=== PATIENT | female | born 1960 | race Caucasian/White ===

== ENCOUNTER → 2020-02-24 | Outpatient (CLI) | payer OTHER ==
[~2020-02-24] MED LIST: ALLOPURINOL 10100 M3 PO; AMLODIPINE BESYL5 MG PO; ASPIRIN EC325 M1 PO; ASPIRIN325 PO; ATORVASTATIN CA40 MG PO; BYSTOLIC10 MG PO; CADUET PO; DEXILANT30 MG PO; EDARBI40 MG PO; EFFIENT10 MG PO; FAMOTIDINE 40 M40 M1 PO; LASIX 40 MG TAB40 M1 PO; LEXAPRO 10 MG T10 M2 PO; LEXAPRO 10 MG T10 MG PO; LIPITOR 20 MG T20 M1 PO; MINIPRIN81 MG PO; OMEPRAZOLE 20 M20 M1 PO; PLAVIX 75 MG TA75 MG PO; POTASSIUM20 PO; XANAX 0.5 MG0.5 M1 PO
== END ==
LOC: SJCVCIMAG 09:43
DX: I70.1 Atherosclerosis of renal artery (principal)

== ENCOUNTER 2020-02-26 07:30 | Inpatient (IN) | payer OTHER ==
[~2020-02-26] VITALS: Ht 154.9 cm; Wt 85.5 kg
[2020-02-26] VITALS (11 sets, daily range): BP systolic 149–175; BP diastolic 59–73
[~2020-02-26 07:30] MED LIST changes: -ALLOPURINOL 10100 M3 PO; -EDARBI40 MG PO; -POTASSIUM20 PO
[2020-02-26] MEDS ORDERED: ALLOPURINOL 10100 M3 PO (08:26)
[2020-02-26] MEDS ORDERED: EDARBI40 MG PO (08:28)
[2020-02-26] MEDS ORDERED: PLAVIX 75 MG TA75 MG PO (08:29)
[2020-02-26] MEDS ORDERED: LEXAPRO 10 MG T10 MG PO (08:31)
[2020-02-27 00:11] VITALS: BP 134/53
[2020-02-27 00:40] VITALS: BP 134/53
--- NOTE | 2020-02-27 03:29 | NUR ---
ASSESSMENT DOCUMENTED.PT BEEN RESTING IN NO ACUTE DISTRESS.A/OX4.VSS.POST CARDIAC ANIKA W/INTERVENTIONS.RIGHT GROIN INTACT,W/O HEMATOMA.NSR ON MONITOR.NO C/O CHEST PAIN.PT DENIES PAIN OR ANY DISTRESS AT THIS TIME.POC IS TO GO HOME THIS AM.
[2020-02-27 04:16] VITALS: BP 134/53
[2020-02-27 04:54] VITALS: BP 146/64
[2020-02-27 05:42] LABS: HEMATOCRIT 32.7 % (37.0-47.0); HEMOGLOBIN 10.6 gm/dL (12.0-15.0); MCH 25.4 pg (26.0-34.0); MCHC 32.5 g/dL (28.0-37.0); MCV 78.2 fL (80.0-100.0); RBC 4.18 mil/uL (4.20-5.00); RDW 17.7 % (10.5-14.5); WBC 9.1 thou/uL (4.0-11.0)
[2020-02-27 06:04] LABS: ALBUMIN 3.1 g/dL (3.4-5.0); ANION GAP 10 mmol/L (7-16); BUN 14 mg/dL (7-18); CALCIUM 8.2 mg/dL (8.5-10.1); CHLORIDE 102 mmol/L (98-107); CO2 28 mmol/L (21-32); CREATININE 0.9 mg/dL (0.6-1.0); GLUCOSE 88 mg/dL (74-106); SGOT 20 U/L (15-37); SGPT 34 U/L (30-65); SODIUM 140 mmol/L (136-145); TOTAL BILIRUBIN 0.5 mg/dL (<0.1-1.0); TOTAL PROTEIN 6.7 g/dL (6.4-8.2); TROPONIN-I <0.06 ng/mL (<0.06)
[2020-02-27 06:09] LABS: POTASSIUM 2.8 mmol/L (3.5-5.1)
[2020-02-27 07:30] VITALS: BP 156/63
[2020-02-27] MEDS ORDERED: EFFIENT10 MG PO (07:35)
[2020-02-27] MEDS ORDERED: POTASSIUM20 PO (07:35)
[2020-02-27 11:07] VITALS: BP 156/63
--- NOTE | 2020-02-27 20:20 | NUR ---
ASSUMED CARE OF THE PATIENT AT 0700. ASSESSMENT COMPLETED. DENIES CHEST PAIN. RIGHT GROIN SITE WITHOUT EDEMA, HEMATOMA OR DISCHARGE. PATIENT'S POTASSIUM SUPPLEMENTED OVER NIGHT BOTH PO AND IV. PATIENT POTASSIUM AT REDRAW WAS 3.3. SONNY SKAGGS, NOTIFIED. PATIENT OKAY TO DISCHARGE. DISCHARGE PAPERWORK REVIEWED WITH RESTRICTIONS AND NEW MEDS. IV AND TELE REMOVED. PATIENT TAKEN OUT VIA WHEELCHAIR AND DRIVEN HOME BY HER . PATIENT STATES THAT SHE FEELS BETTER THAN WHEN SHE ARRIVED.
--- NOTE | 2020-02-28 07:40 | EKG ---
[facility] [place] [address] ELECTROCARDIOGRAM REPORT Name: RONIT BURGER Room #: 202-[facility] IN M.R.#: [id number] Admission: 02/26/20 Attend Phys: Fidel Friedman MD, Discharge: 02/27/20 Date of : 56 Report #: [id number] THIS REPORT FOR: cc: Dima Springer MD, Rene P. MD Lundgren,Dmitriy Sam MD [facility] THIS REPORT FOR: //name// [facility] Test Date: 2020-02-27 Test Time: 08:08:53 Pat Name: RONIT BURGER Department: Room: [facility] Gender: F History Tutor: Christ MATTHEW : 1960 Requested By: Fidel Friedman Order Number: [id number] MD: Dmitriy Gonzalez Measurements Intervals [place] Rate: 66 P: 28 FL: 183 QRS: 10 QRSD: 100 T: 0 QT: 417 QTc: 437 Interpretive Statements Sinus rhythm Poor R wave progression Borderline T abnormalities, inferior leads Compared to ECG 06/30/2016 06:53:52 T-wave abnormality now present Electronically Signed On 02-28-2020 7:38:40 CDT by Dmitriy Gonzalez [email or web address] <ELECTRONICALLY SIGNED> By: Dmitriy Gonzalez MD, [facility] 02/28/20737 7 7 Dmitriy Gonzalez MD, [facility] /EPI
--- NOTE | 2020-02-28 12:31 | CATHLAB ---
[facility] [place] [address] INVASIVE PROCEDURE REPORT Name: BURGERRONIT Room #: 202-[facility] IN M.R.#: [id number] Admission: 02/26/20 Attend Phys: Fidel Friedman MD, Discharge: 02/27/20 Date of : 56 Report #: [id number] THIS REPORT FOR: cc: Dima Springer MD, Rene P. MD Mancuso, Gerald M. MD [facility] ~ APPROVED REPORT Study performed: 02/26/2020 12:12:28 Patient Details Patient Status: Out-Patient Room #: The patient is a 59 year-old female Event Personnel Uli Ordonez Radiologist, Fidel Friedman Motion Picture Narrator, Caty Cruz RN RN, Dee Dee Bingham RT(R)() Josiah Mcfadden Roberta Monitor Procedures Performed Art Access - R femoral artery* Left Heart Cath w/or w/o Coronaries [id number] [facility] [address] Initial Mod Sed Same Phys/QHP Gr5y 473882 Indication Chest pain Procedure Narrative A SHEATH BRITE-TIP 6F X 11CM ([id number]) sheath was inserted into the RFA 6F^. Coronary angiography was performed using coronary diagnostic catheters. The right coronary system was accessed and visualized with a JR4 catheter. The left coronary system was accessed and visualized with a JL4 catheter. The left ventricle was accessed and visualized with a STR PIG catheter. Left ventriculogram was performed in 30 degree projection. Sheath suttured in placed to go to record label intern for intervention. Intraoperative Conscious Sedation Sedation start time: 1247 Case end Time: 1305 Fentanyl 100 mcg Versed 2 mg Fluoro Time: 7.20 minutes Dose: DAP 45441.60 cGycm2 532 mGy [facility] [address] [place] [address] INVASIVE PROCEDURE REPORT Name: RONIT BURGER Room #: 202-[facility]..#: [id number] Admission: 02/26/20 Attend Phys: Fidel Friedman, Discharge: 02/27/20 Date of : 56 Report #: [id number] Contrast Type and Amount: Visipaque 143 ml Hemodynamics The aortic pressure is 191/79 mmHg with a mean of 119 mmHg. The left ventricular pressure is 191/7 mmHg with a mean of mmHg. The left ventricular end diastolic pressure is 28 mmHg. Conclusion 1. Normal left jugular size and systolic function EF 60% #2 left main free of disease giving rise to LAD and circumflex. #3 the LAD extends around the apex there is a proximal stent which appears to be widely patent with mild in-stent restenosis no occlusive disease in the remainder of the LAD. #4 first diagonal branch mild to moderate in size has subtotal long lesion in the proximal aspect. Slow flow QUAN grade I-II. #5 circumflex OM nondominant moderate size free of disease #6 large dominant right coronary artery widely patent. Recommendations and plan: The patient has a high-grade and somewhat complex proximal diagonal stenosis. Will place her in the and transfer to the CV lab. This cardiac catheterization done in interventional radiology following mesenteric angiography. <ELECTRONICALLY SIGNED> By: Fidel Friedman MD, [facility] 02/28/20 1229 1229 1229 Fidel Friedman MD, FACC /INF
--- NOTE | 2020-02-28 12:33 | CATHLAB ---
[facility] [place] [address] INVASIVE PROCEDURE REPORT Name: RONIT BURGER Matti Room #: 202-[facility] IN .R.#: [id number] Admission: 02/26/20 Attend Phys: Fidel Friedman MD, Discharge: 02/27/20 Date of : 56 Report #: [id number] THIS REPORT FOR: cc: Dima Springer MD, Rene P. MD Mancuso, Gerald M. MD [facility] ~ APPROVED REPORT Study performed: 02/26/2020 13:35:42 Patient Details Patient Status: Out-Patient Room #: The patient is a 59 year-old female Event Personnel Fidel Friedman Secondary History Teacher, Caty Cruz RN RN, Ira Madsen RTR, HAL Mcfadden, Fany Bradley RTR Monitor Procedures Performed RODRÍGUEZ Place w/wo Plasty Single DIAG 625391 Art Access - R femoral artery* Hemostasis w/ Mynx 29483 Initial Mod Sed Same Phys/QHP Gr5y 397230 84721 Mod Sed Same Phys/QHP Ea 074964 Indication Chest pain Procedure Narrative The patient was brought electively to the Cardiac Catheterization Laboratory and was prepped and draped in a sterile manner. A 6FR BRITE-TIP sheath was inserted into the RFA. Coronary angiography was performed using coronary diagnostic catheters. Closure device was deployed with a Fr MYNXGRIP 6/7F #[id number]. The patient tolerated the procedure well and there were no complications associated with the procedure. There was no hematoma. Intraoperative Conscious Sedation Sedation start time: 13:43 Case end Time: 14:43 Fentanyl 100 mcg Versed 1 mg Fluoro Time: 6.06 minutes Dose: DAP 5707.40 cGycm2 860 mGy Contrast Type and Amount: Omnipaque 95 ml [facility] [place] [address] INVASIVE PROCEDURE REPORT Name: RONIT BURGER Room #: 202-P [facility] IN ..#: [id number] Admission: 02/26/20 Attend Phys: Fidel JustineLele CostaElder, Discharge: 02/27/20 Date of : 56 Report #: [id number] Hemodynamics The aortic pressure is 194/68 mmHg with a mean of 116 mmHg. PCI Technique Lesion Percutaneous coronary intervention was performed on the first diagnonal branch segment. A LAUNCHER 6FR EBU 3.5 #[id number] Guide Catheter was used to engage the FIRST DIAGNONAL ostium. A Luge Wire .014 x 182CM #[id number] Interventional Guidewire was used to cross the lesion. BALLOON DILATION A Balloon catheter Sprinter OTW 2.25 x 15 #[id number] was inserted and inflated up to 8.00atm for 26seconds. STENT DEPLOYMENT A stent RESOLUTE CHRISTOPHER RX 2.25 X 15 #[id number] was inserted and inflated up to 10.00atm for 24seconds. Additional Inflation: 12.00atm for 22seconds. Conclusion 1. Successful PTCA stent of a subtotal proximal diagonal branch with placement of a 2.25 x 15 resolute christopher stent postdilated 2.3 mm QUAN grade III flow no dissection or thrombus formation. Recommendations and plan. Transferred to CCU in stable condition. Resolution of EKG changes and chest pain. Hemodynamically stable. Dual antiplatelet therapy initiated. <ELECTRONICALLY SIGNED> By: Fidel Friedman MD, FACC 02/28/20 1231 1231 1231 Fidel Friedman MD, FACC /INF
== END 2020-02-27 11:28 | disposition home or self-care (01) | DRG 247 ==
LOC: CATH 07:30 → 2N 15:26 → CATH 16:25 → 2N 02-27 11:28
PROVIDERS: ADMIT Internal Medicine Cardiovascular Disease
PROC: B4141ZZ Fluoroscopy of Superior Mesenteric Artery using Low Osmolar Contrast (ICD-10-PCS; principal; 2020-02-26)
PROC: 4A023N7 Measurement of Cardiac Sampling and Pressure, Left Heart, Percutaneous Approach (ICD-10-PCS; principal; 2020-02-26)
PROC: 027034Z Dilation of Coronary Artery, One Artery with Drug-eluting Intraluminal Device, Percutaneous Approach (ICD-10-PCS; principal; 2020-02-26)
PROC: B4171ZZ Fluoroscopy of Left Renal Artery using Low Osmolar Contrast (ICD-10-PCS; principal; 2020-02-26)
PROC: B215YZZ Fluoroscopy of Left Heart using Other Contrast (ICD-10-PCS; principal; 2020-02-26)
PROC: B41D1ZZ Fluoroscopy of Aorta and Bilateral Lower Extremity Arteries using Low Osmolar Contrast (ICD-10-PCS; principal; 2020-02-26)
PROC: B211YZZ Fluoroscopy of Multiple Coronary Arteries using Other Contrast (ICD-10-PCS; principal; 2020-02-26)
DX: I25.10 Atherosclerotic heart disease of native coronary artery without angina pectoris (principal); I77.4 Celiac artery compression syndrome; K55.1 Chronic vascular disorders of intestine; I10 Essential (primary) hypertension; E78.00 Pure hypercholesterolemia, unspecified; E11.51 Type 2 diabetes mellitus with diabetic peripheral angiopathy without gangrene; I70.1 Atherosclerosis of renal artery; Z88.0 Allergy status to penicillin
CPT/HCPCS: 10081; 10797

== ENCOUNTER 2020-04-18 18:32 | Emergency (ER) | payer OTHER ==
[~2020-04-18] VITALS: Ht 154.9 cm; Wt 81.7 kg
[~2020-04-18 18:32] MED LIST changes: +ALLOPURINOL 10100 M3 PO; -ATORVASTATIN CA40 MG PO; +EDARBI40 MG PO; +LIPITOR40 MG PO; +POTASSIUM20 PO
[2020-04-18 18:50] LABS: URINE BILIRUBIN NEGATIVE (Negative); URINE BLOOD NEGATIVE (Negative); URINE CLARITY CLEAR; URINE COLOR YELLOW; URINE GLUCOSE-RANDOM* NEGATIVE (Negative); URINE KETONES NEGATIVE (Negative); URINE NITRITE-REFLEX NEGATIVE (Negative); URINE PROTEIN (DIPSTICK) NEGATIVE (Negative)
[2020-04-18 19:03] LABS: URINE LEUKOCYTES-REFLEX 2+ (Negative)
[2020-04-18 19:06] LABS: ABSOLUTE NEUTROPHILS 11.2 thou/uL (1.4-8.2); BASOPHILS 0.5 % (0.0-2.0); EOSINOPHILS 0.5 % (0.0-3.0); HEMATOCRIT 30.8 % (37.0-47.0); HEMOGLOBIN 10.4 gm/dL (12.0-15.0); LYMPHOCYTES 12.7 % (24.0-44.0); MCH 26.5 pg (26.0-34.0); MCHC 33.9 g/dL (28.0-37.0); MCV 78.1 fL (80.0-100.0); MONOCYTES 5.9 % (1.0-8.0); PLATELET COUNT 376 thou/uL (150-400); POLYS 80.4 % (36.0-66.0); RBC 3.94 mil/uL (4.20-5.00); WBC 13.9 thou/uL (4.0-11.0)
[2020-04-18 19:09] LABS: CALCIUM 7.9 mg/dL (8.5-10.1); CREATININE 1.1 mg/dL (0.6-1.0); POTASSIUM 3.1 mmol/L (3.5-5.1)
[2020-04-18 19:15] LABS: ALBUMIN 3.2 g/dL (3.4-5.0); TOTAL BILIRUBIN 0.7 mg/dL (0.2-1.0); TOTAL PROTEIN 7.3 g/dL (6.4-8.2)
[2020-04-18 19:16] LABS: CRYSTALS None Seen /LPF (None Seen); SQUAMOUS 4-10 Moderate /LPF (0-3); TRANSITIONAL EPITHEL CELL 4-10 Moderate /LPF (None Seen); URINE RBC None Seen /HPF (0-2); URINE WBC-REFLEX 6-15 Few /HPF (0-5)
[2020-04-18 19:17] LABS: CASTS None Seen /LPF (None Seen); MUCUS None Seen strn/LPF (None Seen)
[2020-04-18] MEDS ORDERED: LEVAQUIN 500 M500 M3 PO (21:38)
[2020-04-18] MEDS ORDERED: ZOFRAN ODT4 MG PO (21:38)
[2020-04-18 21:45] VITALS: BP 129/54
== END 2020-04-18 21:59 | disposition home or self-care (01) ==
LOC: ER 18:32
PROVIDERS: Emergency Medicine
DX: N39.0 Urinary tract infection, site not specified (principal); R11.2 Nausea with vomiting, unspecified; I10 Essential (primary) hypertension; R19.7 Diarrhea, unspecified; Z79.899 Other long term (current) drug therapy; Z98.51 Tubal ligation status; Z79.82 Long term (current) use of aspirin; Z88.0 Allergy status to penicillin

== ENCOUNTER → 2021-09-08 | Outpatient (CLI) | payer OTHER ==
[~2021-09-08] MED LIST changes: +LEVAQUIN 500 M500 M3 PO; +ZOFRAN ODT4 MG PO
== END ==
LOC: SJCVCIMAG 08:00
PROVIDERS: ATTEND Internal Medicine Cardiovascular Disease
DX: K55.1 Chronic vascular disorders of intestine (principal); T82.856A Stenosis of peripheral vascular stent, initial encounter; Z95.828 Presence of other vascular implants and grafts